=== PATIENT | male | born 1965 | race Hispanic/Latino ===

== ENCOUNTER → 2021-02-16 | Outpatient (CLI) | payer BC ==
[~2021-02-16] MED LIST: ACET1TAB25 PO; COLC0.6T73 PO; LORA-192 PO; PRED10TA3 PO
== END | disposition home or self-care (01) ==
LOC: RAH 08:32
PROVIDERS: ATTEND Internal Medicine Cardiovascular Disease
DX: I34.0 Nonrheumatic mitral (valve) insufficiency (principal); E66.9 Obesity, unspecified; R55 Syncope and collapse; Z86.16 Personal history of COVID-19
CPT/HCPCS: 93306; 93356

== ENCOUNTER → 2021-03-13 | Outpatient (CLI) | payer BC ==
[~2021-03-13] MED LIST changes: -LORA-192 PO; +NIFE-40 PO
== END | disposition home or self-care (01) ==
LOC: RAH 14:45
PROVIDERS: ATTEND Neurological Surgery
DX: M43.22 Fusion of spine, cervical region (principal); Z98.1 Arthrodesis status
CPT/HCPCS: 72040

== ENCOUNTER → 2023-06-07 | Outpatient (CLI) | payer OTHER ==
[~2023-06-07] VITALS: Ht 12.7 cm; Wt 110.9 kg
[~2023-06-07] MED LIST changes: +ACET-2079 PO; -ACET1TAB25 PO
== END | disposition home or self-care (01) ==
LOC: DTH 12:01
PROVIDERS: ATTEND Surgery
DX: E66.3 Overweight (principal); I10 Essential (primary) hypertension; E66.1 Drug-induced obesity; G47.33 Obstructive sleep apnea (adult) (pediatric); E66.01 Morbid (severe) obesity due to excess calories; E11.9 Type 2 diabetes mellitus without complications; M19.91 Primary osteoarthritis, unspecified site; K21.9 Gastro-esophageal reflux disease without esophagitis; E78.00 Pure hypercholesterolemia, unspecified; K76.0 Fatty (change of) liver, not elsewhere classified; E78.5 Hyperlipidemia, unspecified; E66.09 Other obesity due to excess calories
CPT/HCPCS: 97802

== ENCOUNTER → 2023-06-10 | Outpatient (CLI) | payer BC | END | disposition home or self-care (01) | LOC: RAH 10:25 | PROVIDERS: ATTEND Surgery | DX: K57.10 Diverticulosis of small intestine without perforation or abscess without bleeding (principal); E66.01 Morbid (severe) obesity due to excess calories | CPT/HCPCS: 74240 ==

== ENCOUNTER → 2023-06-29 | Outpatient (CLI) | payer OTHER | END | disposition home or self-care (01) | LOC: DTH 09:54 | PROVIDERS: ATTEND Surgery | DX: Z71.3 Dietary counseling and surveillance (principal); E66.01 Morbid (severe) obesity due to excess calories; E11.9 Type 2 diabetes mellitus without complications; I10 Essential (primary) hypertension; M19.90 Unspecified osteoarthritis, unspecified site; G47.33 Obstructive sleep apnea (adult) (pediatric); K76.0 Fatty (change of) liver, not elsewhere classified; Z68.41 Body mass index [BMI] 40.0-44.9, adult | CPT/HCPCS: 97803 ==